=== PATIENT | female | born 1990 | race African-American/Black ===

== ENCOUNTER 2018-01-13 14:45 | Inpatient (IN) | payer OTHER ==
[~2018-01-13] VITALS: Ht 162.6 cm; Wt 111.1 kg
[~2018-01-13 14:45] MED LIST: PRENATABS FA T1 EACH
== END 2018-01-25 13:11 | DRG 775 ==
LOC: OB/GYN 01-20 14:45 → LDR 01-23 05:39 → OB/GYN 01-23 05:39
PROC: 0UQGXZZ Repair Vagina, External Approach (ICD-10-PCS; principal; 2018-01-23)
PROC: 10E0XZZ Delivery of Products of Conception, External Approach (ICD-10-PCS; 2018-01-23)
PROC: 3E033VJ Introduction of Other Hormone into Peripheral Vein, Percutaneous Approach (ICD-10-PCS; 2018-01-23)
PROC: 4A1HXCZ Monitoring of Products of Conception, Cardiac Rate, External Approach (ICD-10-PCS; 2018-01-23)
PROC: 4A033R1 Measurement of Arterial Saturation, Peripheral, Percutaneous Approach (ICD-10-PCS; 2018-01-23)
DX: O71.4 Obstetric high vaginal laceration alone (principal); O69.81X0 Labor and delivery complicated by cord around neck, without compression, not applicable or unspecified; O48.0 Post-term pregnancy; Z3A.40 40 weeks gestation of pregnancy; Z37.0 Single live birth

== ENCOUNTER 2018-01-18 13:38 | Outpatient (CLI) | payer OTHER | END 2018-01-19 11:56 | disposition home or self-care (01) | LOC: OBS/DEL 13:38 | DX: O26.893 Other specified pregnancy related conditions, third trimester (principal); R51 Headache; O47.1 False labor at or after 37 completed weeks of gestation; Z34.83 Encounter for supervision of other normal pregnancy, third trimester ==

== ENCOUNTER 2018-04-04 10:18 | Emergency (ER) | payer OTHER ==
[~2018-04-04] VITALS: Ht 162.6 cm; Wt 107.0 kg
== END 2018-04-04 12:05 | disposition home or self-care (01) ==
LOC: ER 10:18
DX: B34.9 Viral infection, unspecified (principal)

== ENCOUNTER 2018-12-28 09:26 | Emergency (ER) | payer OTHER ==
[~2018-12-28] VITALS: Ht 162.6 cm; Wt 108.9 kg
== END 2018-12-28 14:59 | disposition home or self-care (01) ==
LOC: ER 09:26
DX: O98.511 Other viral diseases complicating pregnancy, first trimester (principal); B34.9 Viral infection, unspecified; R50.9 Fever, unspecified; Z34.81 Encounter for supervision of other normal pregnancy, first trimester

== ENCOUNTER 2019-03-26 11:19 | Emergency (ER) | payer OTHER ==
[~2019-03-26] VITALS: Ht 157.5 cm; Wt 83.9 kg
[2019-03-26] MEDS ORDERED: ASPIR 8181 MG (12:26)
== END 2019-03-26 16:27 | disposition home or self-care (01) ==
LOC: ER 11:19
DX: O98.512 Other viral diseases complicating pregnancy, second trimester (principal); B34.9 Viral infection, unspecified; Z34.82 Encounter for supervision of other normal pregnancy, second trimester

== ENCOUNTER 2019-07-13 16:36 | Outpatient (CLI) | payer OTHER ==
[~2019-07-13 16:36] MED LIST changes: +ASPIR 8181 MG
[2019-07-13] MEDS ORDERED: PRENATABS RX T1 EACH PO (17:36)
== END 2019-07-14 11:20 | disposition home or self-care (01) ==
LOC: OBS/DEL 16:36
DX: O26.893 Other specified pregnancy related conditions, third trimester (principal); R10.2 Pelvic and perineal pain

== ENCOUNTER 2019-07-26 14:15 | Inpatient (IN) | payer OTHER ==
[~2019-07-26] VITALS: Ht 162.6 cm; Wt 116.1 kg
[~2019-07-26 14:15] MED LIST changes: +PRENATABS RX T1 EACH PO
== END 2019-08-15 19:07 | DRG 807 ==
LOC: O/R 14:15 → LDR 08-13 07:24 → OB/GYN 08-13 16:49
PROVIDERS: ADMIT Specialist
PROC: 10E0XZZ Delivery of Products of Conception, External Approach (ICD-10-PCS; principal; 2019-08-13)
PROC: 0HQ9XZZ Repair Perineum Skin, External Approach (ICD-10-PCS; 2019-08-13)
PROC: 4A1HXCZ Monitoring of Products of Conception, Cardiac Rate, External Approach (ICD-10-PCS; 2019-08-13)
PROC: 4A033R1 Measurement of Arterial Saturation, Peripheral, Percutaneous Approach (ICD-10-PCS; 2019-08-13)
DX: O70.0 First degree perineal laceration during delivery (principal); Z37.0 Single live birth; Z3A.38 38 weeks gestation of pregnancy; Z22.330 Carrier of Group B streptococcus

== ENCOUNTER → 2020-06-16 | Outpatient (CLI) | payer OTHER | END | disposition home or self-care (01) | LOC: RAD 11:01 | PROVIDERS: ATTEND Pediatrics | DX: R05 Cough (principal); Z03.818 Encounter for observation for suspected exposure to other biological agents ruled out ==

== ENCOUNTER 2021-08-27 19:15 | Emergency (ER) | payer OTHER ==
[~2021-08-27] VITALS: Ht 162.6 cm; Wt 104.3 kg
== END 2021-08-28 00:03 | disposition home or self-care (01) ==
LOC: ER 19:15
DX: N30.00 Acute cystitis without hematuria (principal)

== ENCOUNTER 2021-08-28 15:32 | Emergency (ER) | payer OTHER ==
[~2021-08-28] VITALS: Ht 162.6 cm; Wt 104.3 kg
== END 2021-08-28 18:29 | disposition home or self-care (01) ==
LOC: ER 15:32
DX: N39.0 Urinary tract infection, site not specified (principal)

== ENCOUNTER 2021-11-08 11:07 | Emergency (ER) | payer OTHER ==
[~2021-11-08] VITALS: Ht 162.6 cm; Wt 107.0 kg
[2021-11-08] MEDS ORDERED: MACROBID 100 M100 MG PO (16:29)
== END 2021-11-08 17:09 | disposition home or self-care (01) ==
LOC: ER 11:07
DX: K29.70 Gastritis, unspecified, without bleeding (principal); E86.0 Dehydration; N39.0 Urinary tract infection, site not specified

== ENCOUNTER 2022-04-03 16:51 | Emergency (ER) | payer OTHER ==
[~2022-04-03] VITALS: Ht 162.6 cm; Wt 102.1 kg
[~2022-04-03 16:51] MED LIST changes: +MACROBID 100 M100 MG PO
== END 2022-04-03 21:31 | disposition home or self-care (01) ==
LOC: ER 16:51
DX: A08.4 Viral intestinal infection, unspecified (principal)

== ENCOUNTER 2022-06-17 08:57 | Emergency (ER) | payer OTHER ==
[~2022-06-17] VITALS: Ht 162.6 cm; Wt 108.9 kg
== END 2022-06-17 13:28 | disposition home or self-care (01) ==
LOC: ER 08:57
DX: J03.90 Acute tonsillitis, unspecified (principal); Z91.013 Allergy to seafood; H66.93 Otitis media, unspecified, bilateral

== ENCOUNTER 2024-04-16 15:54 | Inpatient (IN) | payer OTHER ==
[~2024-04-16] VITALS: Ht 162.6 cm; Wt 90.7 kg
[2024-04-16 19:51] LABS: HEMATOCRIT 42.2 % (36.0-45.00); HEMOGLOBIN 14.5 g/dL (12.0-15.00); MEAN CELL VOLUME 89.6 fL (80.00-100.00); MEAN CORPUSCULAR HEMOGLOBIN 30.8 pg (27.00-32.0); MEAN CORPUSCULAR HGB CONC 34.4 g/dl (32.0-36.0); PLATELET COUNT 262 K/uL (150-450); RED BLOOD COUNT 4.71 M/uL (4.00-6.00); RED CELL DISTRIBUTION WIDTH 14.5 % (11.5-14.5)
[2024-04-16 20:08] LABS: URINE APPEARANCE Cloudy; URINE BILIRRUBIN Small (NEGATIVE); URINE BLOOD Large; URINE COLOR Dark Yellow; URINE GLUCOSE Negative (NEGATIVE); URINE LEUKOCYTE Moderate; URINE NITRATE Positive; URINE PROTEIN 30 (NEGATIVE)
[2024-04-16 20:14] LABS: URINE EPITHELIAL CELLS 16.6 uL (0.0-38.8); URINE RBC 636.4 uL (0.0-20.8); URINE WBC 732.6 uL (0.0-23.2)
[2024-04-16 20:15] LABS: URINE BACTERIA > 9821.5 uL (0.0-1933)
[2024-04-16 20:19] LABS: CALCIUM 9.2 mg/dL (8.5-10.1); CREATININE SERUM 1.24 mg/dL (0.55-1.02); GFR 49.22
[2024-04-16 20:22] LABS: POTASSIUM 5.11 mEq/L (3.5-5.1)
[2024-04-16] MEDS ORDERED: CEFTRIAXONE SODIUM 2,000 MG in 0.9 % SODIUM CHLORIDE 100 ML IV SCH (21:00)
[2024-04-16] MEDS ORDERED: 0.9 % SODIUM CHLORIDE 1,000 ML IV SCH ×2 (21:15→22:00)
[2024-04-16 21:49] LABS: INR 1.12; PARTIAL THROMBOPLASTIN TIME 29.6 SECONDS (22.0-34.0); PROTHROMBIN TIME 11.7 SECONDS (9.0-11.5)
[2024-04-16] MEDS ORDERED: FAMOTIDINE/PF 20 MG in 0.9 % SODIUM CHLORIDE 8 ML IV PUSH SCH (21:49)
[2024-04-16] MEDS ORDERED: ONDANSETRON HCL 4 MG in 0.9 % SODIUM CHLORIDE 50 ML IV PRN (22:00)
[2024-04-16] MEDS ORDERED: ACETAMINOPHEN 500 MG GEL..CAP PO PRN (22:00)
[2024-04-16] MEDS ORDERED: KETOROLAC TROMETHAMINE 15 MG VIAL IU SCH (22:00)
[2024-04-17] MEDS ORDERED: METRONIDAZOLE/SODIUM CHLORIDE 100 ML IV SCH (01:00)
[2024-04-17 06:47] LABS: CALCIUM 8.9 mg/dL (8.5-10.1); CREATININE SERUM 0.84 mg/dL (0.55-1.02); GFR 77.16; POTASSIUM 4.15 mEq/L (3.5-5.1)
[2024-04-17] MEDS ORDERED: KETOROLAC TROMETHAMINE 30 MG VIAL IV SCH (13:00)
[2024-04-17] MEDS ORDERED: LACTOBACILLUS ACIDOPHILUS 1 CAP CAP PO SCH (17:00)
[2024-04-17] MEDS ORDERED: KETOROLAC TROMETHAMINE 30 MG VIAL IV PRN (18:15)
[2024-04-17] MEDS ORDERED: SUGAMMADEX SODIUM 200 MG/2 ML VIAL IV ONE (18:15)
[2024-04-18 07:32] LABS: HEMATOCRIT 33.3 % (36.0-45.00); HEMOGLOBIN 11.4 g/dL (12.0-15.00); MEAN CELL VOLUME 90.5 fL (80.00-100.00); MEAN CORPUSCULAR HEMOGLOBIN 31.1 pg (27.00-32.0); MEAN CORPUSCULAR HGB CONC 34.4 g/dl (32.0-36.0); PLATELET COUNT 184 K/uL (150-450); RED BLOOD COUNT 3.68 M/uL (4.00-6.00); RED CELL DISTRIBUTION WIDTH 14.7 % (11.5-14.5)
[2024-04-18 07:57] LABS: ALBUMIN 2.5 gm/dL (3.4-5.0); BILIRUBIN TOTAL 0.43 mg/dL (0.3-1.2); CALCIUM 7.7 mg/dL (8.5-10.1); CREATININE SERUM 0.73 mg/dL (0.55-1.02); GFR 90.72; GLOBULINA 2.9 G/DL (2.4-3.5); MAGNESIUM 1.9 mg/dL (1.8-2.4); PHOSPHOROUS 2.1 mg/dL (2.5-4.9); POTASSIUM 4.16 mEq/L (3.5-5.1); TOTAL PROTEIN 5.4 gm/dL (6.4-8.2)
[2024-04-18] MEDS ORDERED: SUCRALFATE 1 G TABLET PO SCH (09:00)
[2024-04-18 09:26] LABS: PH,URINE 5.5 (5.0-8.0); URINE APPEARANCE Cloudy; URINE BILIRRUBIN Small (NEGATIVE); URINE BLOOD Negative; URINE COLOR Dark Yellow; URINE GLUCOSE Negative (NEGATIVE); URINE LEUKOCYTE Small; URINE NITRATE Negative; URINE PROTEIN 30 (NEGATIVE)
[2024-04-18 09:27] LABS: URINE BACTERIA 22.6 uL (0.0-1933); URINE RBC 54.5 uL (0.0-20.8)
[2024-04-18] MEDS ORDERED: CIPROFLOXACIN IN 5 % DEXTROSE 400 MG/200 ML PIGGYBAG IV SCH (17:00)
== END 2024-04-19 11:52 | disposition home or self-care (01) | DRG 398 ==
LOC: ER 15:54 → O/R 22:07 → SEC-K 22:07 → O/R 04-17 14:30 → OB/GYN 04-17 19:55
PROVIDERS: General Practice; Internal Medicine Infectious Disease; Surgery; ADMIT Internal Medicine; ATTEND Internal Medicine
PROC: BW21ZZZ Computerized Tomography (CT Scan) of Abdomen and Pelvis (ICD-10-PCS; 2024-04-16)
PROC: 0DTJ4ZZ Resection of Appendix, Percutaneous Endoscopic Approach (ICD-10-PCS; principal; 2024-04-17 18:30)
DX: K35.30 Acute appendicitis with localized peritonitis, without perforation or gangrene (principal); N12 Tubulo-interstitial nephritis, not specified as acute or chronic; N39.0 Urinary tract infection, site not specified; B96.20 Unspecified Escherichia coli [E. coli] as the cause of diseases classified elsewhere; E66.9 Obesity, unspecified

== ENCOUNTER 2024-10-14 12:50 | Emergency (ER) | payer OTHER ==
[~2024-10-14] VITALS: Ht 162.6 cm; Wt 105.7 kg
[2024-10-14 12:57] VITALS: BP 112/79; O2SAT 99
[2024-10-14] MEDS ORDERED: ORPHENADRINE CITRATE 30 MG/ML AMPUL IM ONE (13:30)
[2024-10-14] MEDS ORDERED: KETOROLAC TROMETHAMINE 30 MG VIAL IM ONE (13:30)
[2024-10-14] MEDS ORDERED: KETOROLAC TROMETHAMINE 60 MG VIAL IM ONE (13:50)
[2024-10-14] MEDS ORDERED: ORPHENADRINE CITRATE 30 MG/ML AMPUL ONE (13:50)
[2024-10-14 15:23] LABS: URINE APPEARANCE Clear; URINE BILIRRUBIN Negative (NEGATIVE); URINE BLOOD Negative; URINE COLOR Yellow; URINE GLUCOSE Negative (NEGATIVE); URINE KETONE Negative (NEGATIVE); URINE LEUKOCYTE Trace; URINE NITRATE Negative; URINE PROTEIN Negative (NEGATIVE); URINE UROBILINOGEN 0.2 E.U./dl
[2024-10-14 15:27] LABS: URINE BACTERIA 61.1 uL (0.0-1933); URINE EPITHELIAL CELLS 21.8 uL (0.0-38.8); URINE RBC 9.1 uL (0.0-20.8)
[2024-10-14 15:39] LABS: URINE CAST 0.14 uL (0.0-1.40)
== END 2024-10-14 16:04 | disposition home or self-care (01) ==
LOC: ER 12:50
PROVIDERS: General Practice
DX: M54.9 Dorsalgia, unspecified (principal); Z91.013 Allergy to seafood

== ENCOUNTER 2024-12-23 13:55 | Emergency (ER) | payer OTHER ==
[~2024-12-23] VITALS: Ht 162.6 cm; Wt 105.7 kg
[2024-12-23] MEDS ORDERED: MORPHINE SULFATE 4 MG/ML VIAL IV STA (15:10)
[2024-12-23] MEDS ORDERED: KETOROLAC TROMETHAMINE 30 MG VIAL IV STA (15:10)
[2024-12-23 15:40] LABS: HEMATOCRIT 42.5 % (36.0-45.00); HEMOGLOBIN 14.7 g/dL (12.0-15.00); MEAN CELL VOLUME 89.5 fL (80.00-100.00); MEAN CORPUSCULAR HGB CONC 34.7 g/dl (32.0-36.0); PLATELET COUNT 283 K/uL (150-450); RED BLOOD COUNT 4.74 M/uL (4.00-6.00); RED CELL DISTRIBUTION WIDTH 13.5 % (11.5-14.5)
[2024-12-23 16:22] LABS: URINE APPEARANCE Clear; URINE BILIRRUBIN Negative (NEGATIVE); URINE BLOOD Trace; URINE COLOR Yellow; URINE GLUCOSE Negative (NEGATIVE); URINE KETONE Negative (NEGATIVE); URINE LEUKOCYTE Trace; URINE NITRATE Negative; URINE PROTEIN Negative (NEGATIVE); URINE UROBILINOGEN 0.2 E.U./dl
[2024-12-23 16:28] LABS: URINE BACTERIA 4177.3 uL (0.0-1933); URINE EPITHELIAL CELLS 3.3 uL (0.0-38.8); URINE RBC 12.5 uL (0.0-20.8); URINE WBC 66.9 uL (0.0-23.2)
[2024-12-23 16:29] LABS: URINE CAST 0.29 uL (0.0-1.40)
[2024-12-23 16:29] LABS: CALCIUM 8.7 mg/dL (8.5-10.1); CREATININE SERUM 0.86 mg/dL (0.55-1.02); GFR 74.66; POTASSIUM 4.01 mEq/L (3.5-5.1)
[2024-12-23] MEDS ORDERED: levoFLOXacin IN DEXTROSE 5 % 500MG/100ML PIGGYBAG IV ONE (20:00)
== END 2024-12-23 21:26 | disposition home or self-care (01) ==
LOC: ER 13:55
DX: R10.9 Unspecified abdominal pain (principal); Z91.013 Allergy to seafood